=== PATIENT | male | born 1985 | race Asian ===

== ENCOUNTER 2018-09-16 03:15 | Emergency (ER) | payer OTHER ==
[~2018-09-16] VITALS: Ht 175.3 cm; Wt 79.4 kg
[2018-09-16] MEDS ORDERED: CEFTRIAXONE 1 G VIAL IM ONE (04:00)
[2018-09-16] MEDS ORDERED: SULFAMETH/TRIMETH 800/160 MG TABLET PO ONE (04:00)
[2018-09-16] MEDS ORDERED: SULFAMETH/TRIMETH 800/160 MG TABLET ONE (04:01)
[2018-09-16] MEDS ORDERED: CEFTRIAXONE 1 G VIAL ONE (04:01)
[2018-09-16] MEDS ORDERED: LIDOCAINE HCL 1% 20 ML VIAL ONE (04:01)
--- NOTE | 2018-09-16 04:10 | NUR ---
Patient discharged to home in stable conditon. Written and verbal after care instructions given. Patient verbalizes understanding of instructions.
[2018-09-16] MEDS ORDERED: LORAZEPAM 0.5 MG TABLET PO ONE ×2 (04:15→04:30)
[2018-09-16] MEDS ORDERED: LORAZEPAM 1 MG TABLET ONE (04:21)
== END 2018-09-16 04:12 | disposition home or self-care (01) ==
LOC: ER 03:19
DX: L70.9 Acne, unspecified (principal); L03.211 Cellulitis of face; F17.210 Nicotine dependence, cigarettes, uncomplicated
CPT/HCPCS: 96372; 99283; 99406; J0696; J3490; A4663